=== PATIENT | female | born 1990 | race American Indian/Alaskan Native ===

== ENCOUNTER 2019-09-14 11:31 | Emergency (ER) | payer MEDICAID ==
--- NOTE | 2019-09-14 11:59 | Event Note ---
ED Screening Note ED Screening Note: 29 yo female with abnormal vaginal bleeding and lower abdominal pain This initial assessment/diagnostic orders/clinical plan/treatment(s) is/are subject to change based on patients health status, clinical progression and re- assessment by fellow clinical providers in the ED. Further treatment and workup at subsequent clinical providers discretion. Patient/guardian urged not to elope from the ED as their condition may be serious if not clinically assessed and managed. Initial orders include: labs
[2019-09-14 12:57] LABS: Basophils # (Auto) 0.1 K/mm3 (0.0-0.1); Basophils % (Auto) 1.2 % (0.0-1.8); Eosinophils # (Auto) 0.3 K/mm3 (0.0-0.4); Eosinophils % (Auto) 7.9 % (0.0-4.3); Hematocrit 37.9 % (30.3-42.9); Hemoglobin 12.7 gm/dl (10.1-14.3); Lymphocytes # (Auto) 1.7 K/mm3 (1.2-5.4); Lymphocytes % (Auto) 39.1 % (13.4-35.0); Mean Corpuscular HGB Conc 34 % (30-34); Mean Corpuscular Volume 89 fl (79-97); Monocytes # (Auto) 0.4 K/mm3 (0.0-0.8); Monocytes % (Auto) 8.7 % (0.0-7.3); Platelet Count 480 K/mm3 (140-440); Red Blood Count 4.26 M/mm3 (3.65-5.03); Red Cell Distribution Width 13.8 % (13.2-15.2)
[2019-09-14 13:15] LABS: BUN/Creatinine Ratio 11; Blood Urea Nitrogen 8 mg/dL (7-17); Calcium 8.9 mg/dL (8.4-10.2); Hemolysis Index 5
[2019-09-14 13:40] LABS: Bacteria,Urine 2+ /HPF (Negative); Bilirubin,Urine NEG (Negative); Blood,Urine SM (Negative); Color,Urine Yellow (Yellow); Mucus,Urine 3+ /HPF; Protein,Urine <15 mg/dL mg/dL (Negative)
[2019-09-14 13:41] LABS: HCG Qualitative,Urine Negative (Negative)
[2019-09-14] MEDS ORDERED: levoFLOXacin 500 MG TAB PO ONE (17:17)
--- NOTE | 2019-09-14 17:48 | Ultrasound Report ---
ULTRASOUND PELVIS INDICATION / CLINICAL INFORMATION: pelvic pain and vaginal bleeding. TECHNIQUE: Transabdominal. Transvaginal Duplex Color Doppler used: Yes. COMPARISON: None available FINDINGS: UTERUS: Present. - Appearance (if present): Overall normal in size and echotexture. - Size in cm (if present): 7.4 x 4.0 x 3.7 cm. - Endometrial Complex (if present): No significant abnormality.. Thickness in cm (if measured) = 4 mm - Mass lesions: There is a solid mass along the left lateral aspect of the uterine body measuring 3.4 x 2.5 cm, consistent with fibroid. - Additional findings: None. RIGHT ADNEXA: No significant ovarian cyst or mass. Normal color Doppler blood flow. LEFT ADNEXA: No significant ovarian cyst or mass. Normal color Doppler blood flow. FREE FLUID: None. ADDITIONAL FINDINGS: None. IMPRESSION: 1. 3.4 cm uterine fibroid located along the left side of the uterine body. 2. Normal appearance of both ovaries. Signer Name: Nallely Go MD Signed: 09/14/2019 5:44 PM Workstation Name: [id number]
--- NOTE | 2019-09-14 18:29 | Emergency Department Report ---
ED Female HPI - General Chief complaint: Vaginal Bleeding Stated complaint: BLEEDING/LOWER ABD PAIN Time Seen by Provider: 09/14/19 15:41 Source: patient Mode of arrival: Ambulatory Limitations: No Limitations - History of Present Illness MD Complaint: dysuria -: week(s) (2 to 3 weeks progressively worsening abnormal uterine bleeding) Location: suprapubic Radiation: non-radiating Severity: mild Quality: cramping Consistency: constant Improves with: none Worsens with: none Are you Now?: No Associated Symptoms: vaginal bleeding, dysuria. denies: nausea/vomiting, fever/chills, headaches, loss of appetite, shortness of breath, syncope - Related Data Sexually active: No Previous Rx's Medication Instructions Recorded Last Taken Type Phenazopyridine [Pyridium] 200 mg PO TID #20 tab 09/14/19 Unknown Rx Sulfamethoxazole/Trimethoprim 1 each PO BID #20 tablet 09/14/19 Unknown Rx [Bactrim DS TAB] Allergies Allergy/AdvReac Type Severity Reaction Status Date / Time No Known Allergies Allergy Unverified 09/14/19 11:50 ED Review of Systems ROS: Stated complaint: BLEEDING/LOWER ABD PAIN Other details as noted in HPI Comment: All other systems reviewed and negative ED Past Medical Hx - Past Medical History Previous Medical History?: Yes Additional medical history: abnormal uterine bleeding - Surgical History Past Surgical History?: No - Social History Smoking Status: Never Smoker Substance Use Type: Alcohol - Medications Home Medications: Home Medications Medication Instructions Recorded Confirmed Last Taken Type Phenazopyridine [Pyridium] 200 mg PO TID #20 tab 09/14/19 Unknown Rx Sulfamethoxazole/Trimethoprim 1 each PO BID #20 tablet 09/14/19 Unknown Rx [Bactrim DS TAB] ED Physical Exam - General Limitations: No Limitations General appearance: alert, in no apparent distress - Head Head exam: Present: atraumatic, normocephalic - Eye Eye exam: Present: normal appearance, PERRL, EOMI. Absent: scleral icterus, conjunctival injection, periorbital swelling, periorbital tenderness Pupils: Present: normal accommodation - ENT ENT exam: Present: normal exam, mucous membranes moist, TM's normal bilaterally - Neck Neck exam: Present: normal inspection, full ROM - Respiratory Respiratory exam: Present: normal lung sounds bilaterally. Absent: respiratory distress, wheezes, rales, chest wall tenderness, accessory muscle use - Cardiovascular Cardiovascular Exam: Present: regular rate, normal rhythm. Absent: systolic murmur, diastolic murmur, rubs, gallop - GI/Abdominal GI/Abdominal exam: Present: soft, tenderness (Tenderness to the suprapubic r egion with palpation. ), normal bowel sounds. Absent: hyperactive bowel sounds, hypoactive bowel sounds, organomegaly - Extremities Exam Extremities exam: Present: normal inspection, full ROM, normal capillary refill - Back Exam Back exam: Present: normal inspection, full ROM. Absent: CVA tenderness (R), CVA tenderness (L) - Neurological Exam Neurological exam: Present: alert, oriented X3, CN II-XII intact - Psychiatric Psychiatric exam: Present: normal affect, normal mood. Absent: anxious, flat affect - Skin Skin exam: Present: warm, dry, intact, normal color. Absent: rash, cyanosis, diaphoretic ED Course Vital Signs 09/14/19 11:46 Temperature 98.8 F Pulse Rate 96 H Respiratory 16 Rate Blood Pressure 134/112 O2 Sat by Pulse 98 Oximetry ED Medical Decision Making - Lab Data Result diagrams: 09/14/19 12:39 09/14/19 12:39 Critical care attestation.: If time is entered above; I have spent that time in minutes in the direct care of this critically ill patient, excluding procedure time. ED Disposition Clinical Impression: UTI (urinary tract infection), Leiomyoma of body of uterus Disposition: DC-01 TO HOME OR SELFCARE Is pt being admited?: No Does the pt Need Aspirin: No Condition: Stable Instructions: Phenazopyridine (By mouth), Urinary Tract Infection in Women (ED), Dysuria (ED), Uterine Fibroids (ED) Prescriptions: Sulfamethoxazole/Trimethoprim [Bactrim DS TAB] 1 each PO BID #20 tablet Phenazopyridine [Pyridium] 200 mg PO TID #20 tab Referrals: PRIMARY CAREMD [Primary Care Provider] - 3-5 Days NEVIN ARRIAGA MD [Staff Physician] - 3-5 Days
[2019-09-14 18:44] VITALS: BP 130/116
== END 2019-09-14 18:42 | disposition home or self-care (01) ==
LOC: ED 11:31
DX: N39.0 Urinary tract infection, site not specified (principal); D25.9 Leiomyoma of uterus, unspecified; Z79.899 Other long term (current) drug therapy
CPT/HCPCS: 36415; 76830; 76856; 80048; 81001; 81025; 85025; 87076; 87086; 87186

== ENCOUNTER 2020-02-09 10:49 | Emergency (ER) | payer MEDICAID ==
--- NOTE | 2020-02-09 12:42 | Emergency Department Report ---
Chief Complaint: Upper Respiratory Infection Stated Complaint: RUNNY NOSE/CONGESTION/COUGH Time Seen by Provider: 02/09/20 12:39 - HPI History of Present Illness: 29-year-old obese female presents to the emergency room complaining of cough congestion and sneezing with runny nose since Monday. Patient reports that she took NyQuil and Benadryl. Patient denies any fever chills no shortness of breath. Patient reports she took NyQuil this morning. Patient reports no past medical history takes no medications on a daily basis and has no known drug allergies. - Exam Vital Signs: Vital Signs 02/09/20 11:19 Temperature 98.3 F Pulse Rate 105 H Respiratory 18 Rate Blood Pressure 167/107 [Right] O2 Sat by Pulse 97 Oximetry Physical Exam: Gen: alert oriented NAD Cardic: regular rate and rhythm no murmurs appreciated Resp: Clear to auscultation bilateral no wheezing no rales or rhonchi. Abdomen: Soft nontender nondistended normal bowel sounds. Mini neuro: Alert and oriented time 3 Crainal nerve II-IIX intact MSE screening note: Focused history and physical exam performed. Due to findings the following was ordered: 29-year-old obese female presents to the emergency room complaining of cough congestion and sneezing with runny nose since Monday. Patient reports that she took NyQuil and Benadryl. Patient denies any fever chills no shortness of breath. Patient reports she took NyQuil this morning. Patient reports no past medical history takes no medications on a daily basis and has no known drug allergies. ED Disposition for MSE Disposition: MED SCREENING EXAM-LEFT Is pt being admited?: No Does the pt Need Aspirin: No Condition: Stable Instructions: Allergic Rhinitis (ED) Additional Instructions: Recommend increase your fluid intake. Claritin, Zyrtec's or Jodi for seasonal allergies. Also recommend Flonase which are all [id number]. Follow-up with the primary care provider I have listed 1 below for your convenience. Referrals: [facility] [Provider Group] - 3-5 Days
[2020-02-09 14:30] VITALS: BP 108/62
== END 2020-02-09 12:39 | disposition left against medical advice (07) ==
LOC: ED 10:49
DX: R05 Cough (principal); Z53.21 Procedure and treatment not carried out due to patient leaving prior to being seen by health care provider